=== PATIENT | female | born 2000 | race Hispanic/Latino ===

== ENCOUNTER 2019-11-13 17:09 | Emergency (ER) | payer OTHER ==
--- NOTE | 2019-11-13 17:22 | EDPHYS ---
Physician Documentation [facility] Name: Chika Menezes Age: 18 yrs Sex: Female : 2000 Arrival Date: 11/13/2019 Time: 17:11 Bed 6 Private MD: ED Physician Selwyn Vance HPI: 11/12 18:47 This 18 yrs old Female presents to ER via Ambulatory with complaints of Eye snw Problem. 18:47 The patient is experiencing pain, periorbital swelling. Onset: The symptoms/episode snw began/occurred suddenly, 4 day(s) ago, and became worse this morning, and became persistent. Duration: the symptoms are continuous. Associated signs and symptoms: Pertinent positives: None. Severity of symptoms: At their worst the symptoms were moderate in the emergency department the symptoms are unchanged. The patient has not experienced similar symptoms in the past. It is unknown whether or not the patient has recently seen a physician. 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 - Social history:: Smoking status: Patient denies any tobacco usage or history of. ROS: 18:30 Constitutional: Negative for fever, chills, and weight loss, ENT: Negative for injury, snw pain, and discharge, Neck: Negative for injury, pain, and swelling, Cardiovascular: Negative for chest pain, palpitations, and edema, Respiratory: Negative for shortness of breath, cough, wheezing, and pleuritic chest pain, Abdomen/GI: Negative for abdominal pain, nausea, vomiting, diarrhea, and constipation, Back: Negative for injury and pain, : Negative for injury, bleeding, discharge, and swelling, MS/Extremity: Negative for injury and deformity, Skin: Negative for injury, rash, and discoloration, Neuro: Negative for headache, weakness, numbness, tingling, and seizure, Psych: Negative for depression, anxiety, suicide ideation, homicidal ideation, and hallucinations. 18:30 Eyes: Positive for pain, swelling. Exam: 18:07 Constitutional: This is a well developed, well nourished patient who is awake, alert, snw and in no acute distress. Head/Face: Normocephalic, atraumatic. ENT: Nares patent. No nasal discharge, no septal abnormalities noted. Tympanic membranes are normal and external auditory canals are clear. Oropharynx with no redness, swelling, or masses, exudates, or evidence of obstruction, uvula midline. Mucous membranes moist. Neck: Trachea midline, no thyromegaly or masses palpated, and no cervical lymphadenopathy. Supple, full range of motion without nuchal rigidity, or vertebral point tenderness. No Meningismus. Chest/axilla: Normal chest wall appearance and motion. Nontender with no deformity. No lesions are appreciated. Cardiovascular: Regular rate and rhythm with a normal S1 and S2. No gallops, murmurs, or rubs. Normal PMI, no JVD. No pulse deficits. Respiratory: Lungs have equal breath sounds bilaterally, clear to auscultation and percussion. No rales, rhonchi or wheezes noted. No increased work of breathing, no retractions or nasal flaring. Abdomen/GI: Soft, non-tender, with normal bowel sounds. No distension or tympany. No guarding or rebound. No evidence of tenderness throughout. Back: No spinal tenderness. No costovertebral tenderness. Full range of motion. Skin: Warm, dry with normal turgor. Normal color with no rashes, no lesions, and no evidence of cellulitis. MS/ Extremity: Pulses equal, no cyanosis. Neurovascular intact. Full, normal range of motion. Neuro: Awake and alert, GCS 15, oriented to person, place, time, and situation. Cranial nerves II-XII grossly intact. Motor strength 5/5 in all extremities. Sensory grossly intact. Cerebellar exam normal. Normal gait. Psych: Awake, alert, with orientation to person, place and time. Behavior, mood, and affect are within normal limits. 18:07 Eyes: Periorbital structures: cellulitis, that is moderate, erythema, swelling, that is moderate, on the left supraorbital ridge, left upper eyelid, medial canthus of left eye and left lower eyelid, Pupils: no acute changes, Extraocular movements: no acute changes, Conjunctiva: normal, Corneas: are normal. Vital Signs: 17:14 BP 120 / 83; Pulse 99; Resp 15 S; Temp 97.3(TE); Pulse Ox 99% on R/A; Weight 77.11 kg ca1 (R); Height 5 ft. 5 in. (165.10 cm) (R); 17:14 Body Mass Index 28.29 (77.11 kg, 165.10 cm) ca1 MDM: 17:20 Patient medically screened. [facility] 18:08 Data reviewed: vital signs, EMS record. Data interpreted: Pulse oximetry: on room air snw is 99 %. Interpretation: normal. Counseling: I had a detailed discussion with the patient and/or guardian regarding: the historical points, exam findings, and any diagnostic results supporting the discharge/admit diagnosis, the need for outpatient follow up, for definitive care, to return to the emergency department if symptoms worsen or persist or if there are any questions or concerns that arise at home. Response to treatment: There is no appreciated change of the patient's symptoms at this time. Administered Medications: 17:30 Drug: Dolphin 5 mg-325 mg 1 tabs Route: PO; aa5 17:35 Follow up: Response: Medication administered at discharge. aa5 17:30 Drug: Motrin 400 mg Route: PO; aa5 17:35 Follow up: Response: Medication administered at discharge. aa5 17:30 Drug: Doxycycline 100 mg Route: PO; aa5 17:35 Follow up: Response: Medication administered at discharge. aa5 Disposition: 22:09 Co-signature as Attending Physician, Selwyn Vance MD I agree with the assessment and [facility] plan of care. Disposition: 11/13/19 17:21 Discharged to Home. Impression: Pre-septal cellulitis. - Condition is Stable. - Discharge Instructions: Preseptal Cellulitis, Adult, Heat Therapy. - Prescriptions for Mobic 7.5 mg Oral Tablet - take 1 tablet by ORAL route every 12 hours take with food; 20 tablet. Doxycycline Hyclate 100 mg Oral Tablet - take 1 tablet by ORAL route every 12 hours; 20 tablet. - Medication Reconciliation Form, Thank You Letter, Antibiotic Education, Prescription Opioid Use form. - Follow up: Emergency Department; When: As needed; Reason: Worsening of condition. Follow up: Private Physician; When: 2 - 3 days; Reason: Recheck today's complaints, Continuance of care, Re-evaluation by your physician. Signatures: Selwyn Vance MD MD cha Waters, Shelly, LEATHER STITCHER-C LEATHER STITCHER-Csnw Corie Alford, RN RN aa5 Teri Rowan RN RN ca1 Corrections: (The following items were deleted from the chart) 17:38 17:21 11/13/2019 17:21 Discharged to Home. Impression: Pre-septal cellulitis. Condition aa5 is Stable. Forms are Medication Reconciliation Form, Thank You Letter, Antibiotic Education, Prescription Opioid Use. Follow up: Emergency Department; When: As needed; Reason: Worsening of condition. Follow up: Private Physician; When: 2 - 3 days; Reason: Recheck today's complaints, Continuance of care, Re-evaluation by your physician. snw
--- NOTE | 2019-11-13 17:22 | ER ---
Nurse's Notes [facility] Name: Chika Menezes Age: 18 yrs Sex: Female : 2000 Arrival Date: 11/13/2019 Time: 17:11 Bed 6 Private MD: Diagnosis: Pre-septal cellulitis Presentation: 11/12 17:14 Chief complaint: Parent and/or Guardian states: Stye/pimple on L inner upper eyelid, ca1 she popped it, then it's now swelling. Started 4 days ago. Coronavirus screen: Patient denies a cough. Patient denies shortness of breath or difficulty breathing. Patient denies measured and/or subjective temperature greater than 100.4F prior to today's visit. Patient denies travel on a cruise ship or to a country the [facility] currently lists as an affected area. Patient denies contact with known and/or suspected case of COVID-19. Proceed with normal triage. Ebola Screen: Patient negative for fever greater than or equal to 101.5 degrees Fahrenheit, and additional compatible Ebola Virus Disease symptoms Patient denies exposure to infectious person. Initial Sepsis Screen: Does the patient meet any 2 criteria? No. Patient's initial sepsis screen is negative. Does the patient have a suspected source of infection? No. Patient's initial sepsis screen is negative. Risk Assessment: Do you want to hurt yourself or someone else? Patient reports no desire to harm self or others. Onset of symptoms was November 13, 2019. 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 - Social history:: Smoking status: Patient denies any tobacco usage or history of. Screenin:15 Abuse screen: Denies threats or abuse. Nutritional screening: No deficits noted. aa5 Tuberculosis screening: No symptoms or risk factors identified. Fall Risk None identified. Assessment: 17:16 General: Appears uncomfortable, Behavior is calm, cooperative. Pain: Complains of pain aa5 in left eye Pain currently is 9 out of 10 on a pain scale. Neuro: Level of Consciousness is awake, alert, obeys commands, Oriented to person, place, time, situation. Cardiovascular: Patient's skin is warm and dry. Respiratory: Airway is patent Respiratory effort is even, unlabored, Respiratory pattern is regular, symmetrical. GI: No signs and/or symptoms were reported involving the gastrointestinal system. : No signs and/or symptoms were reported regarding the genitourinary system. EENT: Swelling and redness noted to left upper eyelid. Derm: Skin is pink, warm \T\ dry. Musculoskeletal: Range of motion: intact in all extremities. 17:35 Reassessment: Patient is alert, oriented x 3, equal unlabored respirations, skin aa5 warm/dry/pink. Vital Signs: 17:14 BP 120 / 83; Pulse 99; Resp 15 S; Temp 97.3(TE); Pulse Ox 99% on R/A; Weight 77.11 kg ca1 (R); Height 5 ft. 5 in. (165.10 cm) (R); 17:14 Body Mass Index 28.29 (77.11 kg, 165.10 cm) ca1 ED Course: 17:11 Patient arrived in ED. as 17:15 Triage completed. ca1 17:16 Arm band placed on right wrist. ca1 17:16 Patient has correct armband on for positive identification. Bed in low position. Call aa5 light in reach. Side rails up X 1. 17:17 Corie Alford, RN is Primary Nurse. aa5 17:20 Selwyn Vance MD is Attending Physician. [facility] 17:20 Nataly Moreno FNP-C is [facility]. snw 17:35 No provider procedures requiring assistance completed. Patient did not have IV access aa5 during this emergency room visit. Administered Medications: 17:30 Drug: Gowrie 5 mg-325 mg 1 tabs Route: PO; aa5 17:35 Follow up: Response: Medication administered at discharge. aa5 17:30 Drug: Motrin 400 mg Route: PO; aa5 17:35 Follow up: Response: Medication administered at discharge. aa5 17:30 Drug: Doxycycline 100 mg Route: PO; aa5 17:35 Follow up: Response: Medication administered at discharge. aa5 Outcome: 17:21 Discharge ordered by . snw 17:35 Discharged to home ambulatory. aa5 17:35 Condition: stable 17:35 Discharge instructions given to patient, Instructed on discharge instructions, follow up and referral plans. medication usage, Demonstrated understanding of instructions, follow-up care, medications, Prescriptions given X 2. 17:38 Patient left the ED. aa5 Signatures: Selwyn Vance MD MD cha Waters, Shelly, LANDSCAPE ARTIST-C LANDSCAPE ARTIST-Csnw Skye Rodriguez Audri, RN RN aa5 Teri Rowan RN RN ca1 Corrections: (The following items were deleted from the chart) 17:21 17:14 Chief complaint: Parent and/or Guardian states: Stye on L eye, she popped it, ca1 then it's now swelling. Started 4 days ago ca1
[2019-11-13] MEDS ORDERED: DOXYCYCLINE 100 MG CAP PO ONE (17:34)
[2019-11-13] MEDS ORDERED: HYDROCODONE/APAP 5/325 MG TAB ONE (17:34)
[2019-11-13] MEDS ORDERED: IBUPROFEN 400 MG TAB ONE (17:34)
[2019-11-13 17:43] VITALS: BP 120/83; TEMP 97.3; O2SAT 99
== END 2019-11-13 17:38 | disposition home or self-care (01) ==
LOC: ER 17:09
DX: L03.213 Periorbital cellulitis (principal); Z91.048 Other nonmedicinal substance allergy status
CPT/HCPCS: 99283

== ENCOUNTER 2023-07-24 21:37 | Emergency (ER) | payer BC ==
[2023-07-24 22:23] LABS: Absolute Eosinophils 0.2 K/uL (0-0.5); Absolute Monocytes 0.6 K/uL (0.1-1.3); Absolute Neutrophil 9.2 K/uL (1.8-8.0); Basophils % 0.3 % (0-1.3); Eosinophils % 1.8 % (0-4.4); Hematocrit 40.7 % (36.0-45.0); Hemoglobin 13.4 g/dL (12.0-15.0); Lymphocytes % 16.5 % (15.3-44.8); MCH 30.8 pg (27.0-35.0); MCV 93.4 fL (80-100); MPV 7.5 fL (7.6-11.3); Monocytes % 5.2 % (3.3-12.3); Neutrophils % 76.2 % (41.7-73.7); Platelets 285 thou/uL (152-406); RBC Red Blood Cell Count 4.36 M/uL (3.86-4.86); Red Cell Distribution Width 12.5 % (12.1-15.2)
[2023-07-24 22:35] LABS: Specific Gravity 1.015 (1.005-1.030)
[2023-07-24 22:37] LABS: Specific Gravity 1.015 (1.005-1.030); Sqamous Epithelial <5 /HPF (None Seen); Urine Bacteria 20-50 /HPF (<20); Urine Bilirubin NEGATIVE (Negative); Urine Blood 3+ (OVER) (Negative); Urine Clarity Extremely Turbid (Clear); Urine Color Light-Red (Yellow); Urine Culture Reflex Order REFLEXED; Urine Glucose NEGATIVE (Negative); Urine Ketones NEGATIVE (Negative); Urine Microscopic Reflex YN ORDER UMIC; Urine Mucus Slight /HPF (None Seen); Urine Nitrite NEGATIVE (Negative); Urine Protein 2+ (Negative); Urine RBC >50 /HPF (None Seen); Urine Urobilinogen Normal (Normal); Urine WBC 20-50 /HPF (<5)
[2023-07-24 22:50] LABS: Anion Gap 6.6 mEq/L (5.0-15.0); Potassium 3.6 mEq/L (3.5-5.1)
--- NOTE | 2023-07-25 00:23 | ER ---
Nurse's Notes [facility] Name: Chika Menezes Age: 22 yrs Sex: Female : 2000 Arrival Date: 07/24/2023 Time: 21:37 Bed 2 Private MD: Diagnosis: Threatened Presentation: 07/23 21:49 Chief complaint: Patient states: I am about seven weeks and i have been having ha1 vaginal bleeding since this morning. Coronavirus screen: Vaccine status: Patient reports being unvaccinated. Ebola Screen: No symptoms or risks identified at this time. Initial Sepsis Screen: Does the patient meet any 2 criteria? No. Patient's initial sepsis screen is negative. Does the patient have a suspected source of infection? No. Patient's initial sepsis screen is negative. Risk Assessment: Do you want to hurt yourself or someone else? Patient reports no desire to harm self or others. Onset of symptoms was July 24, 2023. 21:49 Method Of Arrival: Ambulatory ha1 21:49 Acuity: MARIELENA 3 ha1 Triage Assessment: 21:51 General: Appears comfortable, Behavior is calm, cooperative. Pain: Denies pain. Neuro: ha1 Level of Consciousness is awake, alert, obeys commands, Oriented to person, place, time, situation. Cardiovascular: Patient's skin is warm and dry. Respiratory: Airway is patent Respiratory effort is even, unlabored, Respiratory pattern is regular, symmetrical. : Reports vaginal bleeding that is bright red, moderate flow. Derm: Skin is pink, warm \T\ dry. Musculoskeletal: Circulation, motion, and sensation intact. Range of motion: intact in all extremities. 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 - Infectious Disease History:: Denies. - Social history:: Smoking status: Patient/guardian denies using tobacco, Stopped _ months ago 3. Screenin:52 Abuse screen: Denies threats or abuse. Denies injuries from another. Nutritional ha1 screening: No deficits noted. Tuberculosis screening: No symptoms or risk factors identified. 22:10 [facility] ED Fall Risk Assessment (Adult) History of falling in the last 3 months, as6 including since admission No falls in past 3 months (0 pts) Confusion or Disorientation No (0 pts) Intoxicated or Sedated No (0 pts) Impaired Gait No (0 pts) Mobility Assist Device Used No (0 pt) Altered Elimination No (0 pt) Score/Fall Risk Level 0 - 2 = Low Risk Oriented to surroundings, Maintained a safe environment, Educated pt \T\ family on fall prevention, incl call for assistance when getting out of bed, Assessed \T\ reinforced patient's understanding of fall precautions, Hourly rounding (assess needs \T\ fall precautionary measures) done. Assessment: 22:11 General: Appears in no apparent distress. Behavior is calm, cooperative. Pain: Denies as6 pain. Neuro: Level of Consciousness is awake, alert, obeys commands, Oriented to person, place, time, situation. Cardiovascular: Capillary refill < 3 seconds Patient's skin is warm and dry. Respiratory: Respiratory effort is even, unlabored, Respiratory pattern is regular, symmetrical. GI: No deficits noted. No signs and/or symptoms were reported involving the gastrointestinal system. : Reports vaginal bleeding that is bright red, moderate flow. EENT: No deficits noted. No signs and/or symptoms were reported regarding the EENT system. Derm: Skin is intact, is healthy with good turgor. Musculoskeletal: Circulation, motion, and sensation intact. 23:00 Reassessment: Patient and/or family updated on plan of care and expected duration. Pain ha1 level reassessed. Patient is alert, oriented x 3, equal unlabored respirations, skin warm/dry/pink. 07/24 00:40 Reassessment: Patient and/or family updated on plan of care and expected duration. Pain ha1 level reassessed. Patient is alert, oriented x 3, equal unlabored respirations, skin warm/dry/pink. Vital Signs: 07/23 21:49 BP 107 / 72; Pulse 77; Resp 17 S; Temp 98.2(T); Pulse Ox 100% on R/A; Weight 61.23 kg; ha1 Height 5 ft. 5 in. ; 22:15 BP 100 / 70; Pulse 64; Resp 16; Pulse Ox 100% ; jj7 23:15 BP 106 / 71; Pulse 70; Resp 17; Pulse Ox 100% ; jj7 07/24 00:00 BP 97 / 69; Pulse 62; Resp 17 S; Pulse Ox 100% on R/A; ha1 07/23 21:49 Body Mass Index 22.46 (61.23 kg, 165.1 cm) ha1 ED Course: 07/23 21:40 Patient arrived in ED. mr 21:44 Selwyn Emerson PA is PHCP. cp 21:44 Gume Bajwa MD is Attending Physician. cp 21:51 Triage completed. ha1 21:58 Tyra Guzmán, LEE is Primary Nurse. jj7 22:10 Abo/rh Typing Sent. as6 22:10 Basic Metabolic Panel Sent. as6 22:10 CBC with Diff Sent. as6 22:10 Test, Urine Sent. as6 22:10 Quantitative Hcg Sent. as6 22:10 Urinalysis w/ reflexes Sent. as6 22:10 Inserted saline lock: 20 gauge in right antecubital area, using aseptic technique. as6 Blood collected. 22:10 Arm band placed on right wrist. as6 22:11 Bed in low position. Call light in reach. as6 23:11 US Transvaginal Ob In Process Unspecified. [facility] 07/24 00:41 No provider procedures requiring assistance completed. IV discontinued, intact, ha1 bleeding controlled, No redness/swelling at site. Pressure dressing applied. 00:41 Provided Education on: medication administration and follow up with OB. ha1 Administered Medications: 00:25 Drug: Nitrofurantoin PO 100 mg PO once; administer with food Route: PO; ha1 00:39 Follow up: Response: No adverse reaction ha1 Medication: 07/23 22:10 VIS not applicable for this client. as6 Outcome: 07/24 00:22 Discharge ordered by . cp 00:41 Discharged to home ambulatory, with family, ha1 00:41 Condition: stable 00:41 Discharge instructions given to patient, family, Instructed on discharge instructions, follow up and referral plans. medication usage, Demonstrated understanding of instructions, follow-up care, medications, Prescriptions given X 1, 00:43 Patient left the ED. ha1 Signatures: Dispatcher [employer] EDMS Ashley Sanders, Reg Reg mr Selwyn Emerson PA PA cp Slawson, Ashby, RN RN as6 Nicolle Andrew RN RN ha1 Tyra Guzmán RN RN jj7
--- NOTE | 2023-07-25 00:23 | EDPHYS ---
Physician Documentation [facility] Name: Chika Menezes Age: 22 yrs Sex: Female : 2000 Arrival Date: 07/24/2023 Time: 21:37 Bed 2 Private MD: ED Physician Gume Bajwa HPI: 07/23 22:30 This 22 yrs old Female presents to ER via Ambulatory with complaints of cp Vaginal Bleeding, + Preg <12wks. 22:30 The patient presents to the emergency department with vaginal bleeding, that is light. cp 22:30 The estimated gestational age is 6 weeks. course: care: none, cp Leakage of Fluid: none appreciated, Ultrasound: the patient has not had an ultrasound. Previous pregnancies: the patient has never been . Associated signs and symptoms: Pertinent negatives: abdominal pain, fever. 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 - Infectious Disease History:: Denies. - Social history:: Smoking status: Patient/guardian denies using tobacco, Stopped _ months ago 3. ROS: 22:35 : Positive for vaginal bleeding, Negative for urinary symptoms, pelvic pain, cp 22:35 Constitutional: Negative for body aches, chills, fever, poor PO intake, cp 22:35 Cardiovascular: Negative for chest pain, 22:35 Respiratory: Negative for cough, shortness of breath, wheezing, 22:35 Abdomen/GI: Negative for abdominal pain, nausea and vomiting, 22:35 Back: Negative for pain at rest, pain with movement, 22:35 Neuro: Negative for altered mental status, dizziness, headache, syncope, weakness, 22:35 All other systems are negative, Exam: 22:40 Constitutional: The patient appears in no acute distress, alert, awake, comfortable, cp non-toxic, well developed, well nourished, 22:40 Head/Face: Normocephalic, atraumatic. cp 22:40 Eyes: Periorbital structures: appear normal, Conjunctiva: normal, no exudate, no injection, Sclera: no appreciated abnormality, Lids and lashes: appear normal, bilaterally, 22:40 ENT: External ear(s): are unremarkable, Nose: is normal, Mouth: Lips: moist, Oral mucosa: moist, Posterior pharynx: is normal, airway is patent, no erythema, no exudate, 22:40 Chest/axilla: Inspection: normal, 22:40 Cardiovascular: Rate: normal, Rhythm: regular, 22:40 Respiratory: the patient does not display signs of respiratory distress, Respirations: normal, no use of accessory muscles, no retractions, labored breathing, is not present, Breath sounds: are clear throughout, no decreased breath sounds, no stridor, no wheezing, 22:40 Abdomen/GI: Inspection: abdomen appears normal, Bowel sounds: active, all quadrants, Palpation: abdomen is soft and non-tender, in all quadrants, 22:40 Back: pain, is absent, ROM is normal, 22:40 Neuro: Orientation: to person, place \T\ time. Mentation: is normal, Vital Signs: 21:49 BP 107 / 72; Pulse 77; Resp 17 S; Temp 98.2(T); Pulse Ox 100% on R/A; Weight 61.23 kg; ha1 Height 5 ft. 5 in. ; 22:15 BP 100 / 70; Pulse 64; Resp 16; Pulse Ox 100% ; [facility] 23:15 BP 106 / 71; Pulse 70; Resp 17; Pulse Ox 100% ; j 07/24 00:00 BP 97 / 69; Pulse 62; Resp 17 S; Pulse Ox 100% on R/A; ha1 04 21:49 Body Mass Index 22.46 (61.23 kg, 165.1 cm) [facility] MDM: 07/23 21:53 Patient medically screened. cp 23:00 Differential diagnosis: STD, ectopic , uti. cp 07/24 00:21 Data reviewed: vital signs, nurses notes, lab test result(s), radiologic studies, cp ultrasound. 00:21 Counseling: I had a detailed discussion with the patient and/or guardian regarding the cp historical points, exam findings, and any diagnostic results supporting the discharge/admit diagnosis, lab results, radiology results, to return to the emergency department if symptoms worsen or persist or if there are any questions or concerns that arise at home. ED course: VSS. Discussed results of today's testing. Will discharge to home for continued monitoring with recommendation of 48 hr beta-hcg testing. 07/23 21:53 Order name: Abo/rh Typing; Complete Time: 00:03 07/24 00:04 Interpretation: Reviewed. 07/23 21:53 Order name: Basic Metabolic Panel; Complete Time: 00:03 07/24 00:04 Interpretation: Reviewed. 07/23 21:53 Order name: CBC with Diff; Complete Time: 22:39 07/24 00:12 Interpretation: Normal except: WBC 12.10; MPV 7.5; HARDIK% 76.2; NEUT A 9.2. 07/23 21:53 Order name: Test, Urine; Complete Time: 22:39 07/23 21:53 Order name: Quantitative Hcg; Complete Time: 00:03 07/24 00:04 Interpretation: HCGQ 1270; Reviewed. 07/23 21:53 Order name: Urinalysis w/ reflexes; Complete Time: 22:39 07/24 00:04 Interpretation: Normal except: [facility] Extremely Turbid; UBLD 3+ (OVER); UPROT 2+; UESTR cp 250; UWBC 20-50; URBC >50; UBACT 20-50. 07/23 22:41 Order name: Urine Culture [facility] 07/23 22:40 Order name: US Transvaginal Ob 07/23 21:53 Order name: IV Saline Lock; Complete Time: 22:10 07/23 21:53 Order name: Labs collected and sent; Complete Time: 22:09 07/23 21:53 Order name: NPO; Complete Time: 22:09 cp Administered Medications: 00:25 Drug: Nitrofurantoin PO 100 mg PO once; administer with food Route: PO; ha1 00:39 Follow up: Response: No adverse reaction ha1 Disposition Summary: 07/25/23 00:22 Discharge Ordered Notes: Location: Home cp Problem: new cp Symptoms: have improved cp Condition: Stable cp Diagnosis - Threatened cp Followup: cp - With: Private Physician - When: 48 Hours - Reason: Repeat Beta-HCG (48 Hours) Discharge Instructions: - Discharge Summary Sheet cp - Abdominal Pain During cp - Care cp - Threatened Miscarriage cp - Vaginal Bleeding During , First Trimester cp - First Trimester of cp Forms: - Family Work Release cp - Medication Reconciliation Form cp - Thank You Letter cp - Antibiotic Education cp - Prescription Opioid Use cp - Patient Portal Instructions cp - Leadership Thank You Letter cp Prescriptions: - Macrobid 100 mg Oral Capsule - take 1 capsule ORAL route every 12 hours for 7 days; 14 capsule; Refills: 0, cp Product Selection Permitted Signatures: Dispatcher [employer] EDSelwyn Navarro, LUIS ALBERTO PA Nicolle Bradley, RN RN ha1
[2023-07-25] MEDS ORDERED: NITROFURAN MACRO 100 MG CAP PO ONE (00:33)
[2023-07-25 06:55] VITALS: BP 97/69; TEMP 98.2; O2SAT 100
--- NOTE | 2023-07-25 14:23 | RAD REPORT ---
EXAM DESCRIPTION: US - Transvaginal OB - 07/24/2023 11:09 pm CLINICAL HISTORY: Vaginal bleeding. TECHNIQUE: First trimester obstetric ultrasound, transvaginal. COMPARISON: None. FINDINGS: Uterus: Orientation: Retroverted. Measurement: 7.3 x 3.2 x 4.9 cm for a volume of 60.5 mL. Myometrial echotexture: Normal. IMPRESSION: Endometrial cavity: Normal caliber measuring 0.9 cm in AP diameter. Right Ovary: Size: 2.1 x 1.4 x 1.5 cm for a volume of 2.3 mL. Blood flow: Normal. Appearance: Normal. Left Ovary: Size: 3.0 x 2.0 x 2.0 cm for a volume of 6.4 mL. Blood flow: Normal. Appearance: Normal. Pelvic Cul de Sac: No free fluid. IMPRESSION: 1. No evidence of intrauterine or extrauterine gestation. Electronically signed by: Chris Cardenas MD 07/24/2023 11:27 PM CDT Due to temporary technical issues with the PACS/Fluency reporting system, reports are being signed by the in house radiologists without review as a courtesy to insure prompt reporting. The interpreting radiologist is fully responsible for the content of the report
== END 2023-07-25 00:43 | disposition home or self-care (01) ==
LOC: ER 21:37
DX: O20.0 Threatened abortion (principal); Z91.048 Other nonmedicinal substance allergy status
CPT/HCPCS: 36415; 76817; 80048; 81001; 81025; 84702; 85025; 86900; 86901; 87086; 87088; 99284